=== PATIENT | female | born 2005 | race African-American/Black ===

== ENCOUNTER 2024-08-22 09:43 | Emergency (ER) | payer SELFPAY ==
--- NOTE | ~2024-08-22 | XR_ITS ---
CLINICAL HISTORY: cough, chest tightness 2 view chest x-ray Comparison: None Findings: The lungs are clear. Heart size is normal. No acute fracture. IMPRESSION: 1. No acute findings. This document has been electronically signed by: Tali Albrecht MD on 08/22/2024 13:11:50
[2024-08-22 09:47] VITALS: BP 125/83; PULSE 106; RESP 18; TEMP 37; O2SAT 97; BMI 31.2
[2024-08-22 10:46] LABS: Influenza A PCR NEGATIVE (Negative); Influenza B PCR NEGATIVE (Negative); Resp Syncy Virus RNA Qual PCR NEGATIVE (Negative); SARS COV2 PCR INHOUSE NEGATIVE (Negative)
--- NOTE | 2024-08-22 11:06 | ED_ITS ---
HPI - URI/Sore Throat General Chief Complaint: Upper Respiratory Symptoms Stated Complaint: chills, cough Time Seen by Provider: 08/22/24 10:59 Source: patient Mode of arrival: ambulatory Limitations: no limitations History of Present Illness ED Provider: adolph acevedo np HPI Narrative: Patient is a 18-year-old female who presents to the emergency department for evaluation of viral type symptoms. She reports 1 week ago she was experiencing nasal congestion intermittent headache which she thought was secondary to her allergies for which she took a Zyrtec for a couple of days and Tylenol. Symptoms began improving. Yesterday she began again with a nonproductive cough, body aches, chills and tactile fever, chest tightness during coughing, wheezing that has required use of her albuterol rescue inhaler, and nasal congestion. She reports feeling generally fatigued since yesterday as well. Admits that other class numbers at school has been ill with similar symptoms. She currently denies headache, dizziness, neck pain, neck stiffness, nausea, vomiting, abdominal pain, numbness or tingling of the extremities. Related Data Previous Rx's ?Medication ?Instructions ?Recorded azithromycin 250 mg tablet See Rx Instructions PO .COMPLEX #6 08/22/24 tabs prednisone 20 mg tablet 20 mg PO DAILY #5 tabs 08/22/24 Allergies Allergy/AdvReac Type Severity Reaction Status Date / Time Sulfa (Sulfonamide Allergy Rash Verified 08/22/24 09:49 Antibiotics) Review of Systems Review of Systems: Yes all other systems are reviewed and are negative PMFSH Past Medical History Attestation statement: The following information was validated with the patient. Source: old records reviewed Social History Social History Substance Use Type: Marijuana Advance Directives: No Advance Directives Information Provided: Yes Physical Exam Vital Signs: Vital Signs: Last Vital Signs Temp 100.2 F 08/22/24 13:01 Pulse 100 08/22/24 13:01 Resp 18 08/22/24 13:01 BP 120/72 08/22/24 13:01 Pulse Ox 96 08/22/24 13:01 O2 Del Method Room Air 08/22/24 13:01 BMI result Body Mass Index 31.2 Appearance: Alert.?Oriented to person, place and time. No acute distress.?Normal affect. Eyes: Pupils equal, round and reactive to light.? ENT: TM normal bilaterally. Pharynx normal.?? Neck: Normal inspection.? Neck supple.??No cervical adenopathy CVS: Heart sounds normal. mild tachycardia 106 beats per minute. Pulses normal.?? Respiratory: No respiratory distress.? Lung sounds clear to auscultation bilaterally?? Abdomen: Soft and non-tender. Normoactive bowel sounds. Skin: Skin warm and dry.? Normal skin color.? ? Extremities: No lower extremity edema.? Neuro: Moves all extremities spontaneously. Sensation intact bilaterally. No motor deficits. Ambulates with normal steady gait. Medications Administered Discontinued Medications Generic Name Dose Route Start Last Admin Trade Name Freq PRN Reason Stop Dose Admin Acetaminophen 975 mg 08/22/24 13:10 08/22/24 13:17 Acetaminophen 325 Mg Tablet PO 08/22/24 13:11 975 mg ONCE ONE Administration Albuterol Sulfate 2 puff 08/22/24 13:10 08/22/24 13:17 Albuterol Sulfate 90 Mcg 8 Gm Inhaler INHALE 08/22/24 13:11 2 puff ONCE ONE Administration Medical Decision Making Medical Decision Making [facility] Narrative: Patient is a 18-year-old female with past medical history of asthma, presenting for evaluation viral type symptoms as per HPI. She endorsed symptoms early in the week which she attributed to seasonal allergies that had improved but then worsened again as of yesterday. COVID- 19/influenza / RSV testing negative. No after chest pain to suggest ACS, Wells score low risk, unlikely pulmonary embolism. CXR reveals no acute consolidation or infiltrate. Well-appearing, nontoxic, afebrile, no tachypnea/hypoxia. Speaking clear full sentences, ambulatory with steady gait. Discussed conservative treatment including rest, hydration, Tylenol/ibuprofen as needed for fever and body aches, saline nasal spray, humidifier, agsr-krs-nmursaw cold medication/ antihistamine. Advised to follow-up with primary care provider as needed, discussed reasons to return back to the emergency department. All questions were answered. Patient discharged home in stable condition. Differential Diagnosis Differential Diagnoses: The differential diagnosis associated with the presentation includes ( See narrative above) Admission/Observation Consideration of admission/observation: Escalation of care including admission/observation considered ( see narrative above) Lab Data [facility] Lab Attestation statement: I reviewed the patient's lab results. ( see narrative above) Labs: Lab Results 05/18/25 Range/Units 09:59 Influenza Type A (PCR) NEGATIVE (Negative) Influenza Type B (PCR) NEGATIVE (Negative) RSV RNA Qual (PCR) NEGATIVE (Negative) SARS-CoV-2 RNA (RT-PCR) NEGATIVE (Negative) Independent Interpretation I performed an independent interpretation of an: Plain X-Ray ( see narrative above) Radiology Impression Discussion of test interpretation with radiology: I have reviewed the radiologist's reading. Prescription Management I considered prescription management with: Pain Medication ( acetaminophen/ibuprofen) Chronic Conditions Patient?s care impacted by: Other ( see narrative above) Discharge Plan Discharge Clinical Impression: Bronchitis, Asthma exacerbation Patient Disposition: Home, Self-Care Instructions: Asthma (ED), Acute Bronchitis (ED) Additional Instructions: Chest x-ray does not show evidence of pneumonia. Testing for COVID, flu, and RSV were negative. Your exam today was very reassuring. Fifteen for prednisone which is an oral steroid should be taken daily with food to prevent stomach upset in addition to a prescription for Azithromycin biotic has been sent to your pharmacy. Be sure to rest, stay well hydrated drinking plenty of fluids, eat small frequent meals. Tylenol/ibuprofen can be used as needed for fever/pain. Sbra-wrj-cndmeja cold medications may be helpful as well for symptoms. Saline nasal spray, humidifier may be helpful for nasal congestion. You may return to the emergency department with any new or worsening symptoms or concerns. Follow-up with your primary care provider as needed. Should remain out of school/ work until symptoms have resolved and have been without a fever for 24 hours without the use of Tylenol or ibuprofen. It is very important to use a back-up form of control, such as barrier condoms/abstinence, while on antibiotics and for one week after as they may be ineffective in preventing while on the antibiotics. While taking antibiotics, please include probiotics that can be found over the counter or yogurt in your diet. If symptoms of a yeast infection or diarrhea occur, please seek evaluation. Prescriptions: New azithromycin 250 mg tablet See Rx Instructions .ROUTE .COMPLEX Qty: 6 0RF Rx Instructions: For 250 mg dose pack: take 500 mg today (day 1), then 250 mg for 4 days (days 2-5) prednisone 20 mg tablet 20 mg PO DAILY Qty: 5 0RF Referrals: Nicolle Velasquez MD [Primary Care Provider] - Print Language: Khmer
--- OUTSIDE RECORDS SUMMARY | 2024-08-22 11:11 | XMS_ITS ---
Author Name [facility] Organization Unknown History of Medication Use Medication Directions Dispensed Refills Start Date End Date Stat SENNA 8.6 mg tablet TAKE 1 TABLET BY MOUTH NIGHTLY 11/06/2022 12/04/2022 active SENNA 8.6 mg tablet TAKE 1 TABLET BY MOUTH NIGHTLY 11/05/2022 11/05/2022 active omeprazole (PRILOSEC) 40 MG capsule TAKE 1 CAPSULE (40 MG) BY MOUTH DAILY 04/03/2022 07/05/2022 active polyethylene glycol (MIRALAX) 17 gram/dose powder 1 capful twice daily 12/13/2021 active FLUoxetine (PROZAC) 20 MG capsule Take by mouth 07/09/2021 active traZODone (DESYREL) 100 MG tablet Take by mouth 07/09/2021 active lurasidone (LATUDA) 20 mg Tablet 0 Refills, Maintenance, 06/30/21 21:06:00 EDT, Partial fill upon patient request if the prescription is for a schedule II opioid drug. 06/30/2021 active traZODone (DESYREL) 50 MG tablet Take by mouth 06/30/2021 active Problems Problem Status Onset Date Problem Type Date of Resolution Source Constipation, unspecified constipation type active [place] [place] Encounter Type Encounter Reason Primary Diagnosis Location Date [facility] 07/01/2022 [facility] 04/10/2022 [facility] 04/04/2022 [facility] 02/27/2022 [facility] 12/27/2021 Care Team Organization Name Specialty Phone Email Start Date End Da te [facility] STACY FULLER Primary Care 02/28/2022
--- OUTSIDE RECORDS SUMMARY | 2024-08-22 11:11 | XMS_ITS | Clinical Summary ---
Author Organization [facility] Address [address] [place] [address] Care Team Providers Care Medical Economics Consultant Name Role Phone Unavailable Primary Care Provider Unavailabl e Social History Tobacco Use Types Packs/Day Years Used Date Smoking Tobacco: Never Assessed Comments Unknown Sex and Gender Information Value Date Recorded Sex Assigned at Not on file Legal Sex Female 10:14 AM EST Gender Identity Not on file Sexual Orientation Not on file Plan of Treatment Health Maintenance Due Date Last Done Comments Gonorrhea/Chlamydia Screening 2004 Varicella Vaccines (1 of 2 - 13+ 2-dose series) 2017 HPV Vaccines (1 - 3-dose series) 12/30/2019 Meningococcal B Vaccine (1 o f 2 - Standard) 2020 Annual Well Child Visit (3-2 1 years old) 03/10/2022 Depression Screening 03/10/2022 HIV Screening 03/10/2022 Hepatitis C Screening 03/10/2022 Social Influencers of Health Screening 03/10/2022 COVID-19 Vaccine ( - 2023-2 5 season) 2023 DTaP,Tdap,and Td Vaccines (1 - Tdap) 12/30/2023 Hepatitis B Vaccines (1 of 3 - 19+ 3-dose series) 12/30/2023 Influenza Vaccine (Season Ended) 2024 HIB Vaccines Aged Out No longer eligi ble based on patient's age to complete this topic Hepatitis A Vaccines Aged Out No long er eligible based on patient's age to complete this topic IPV Vaccines Aged Out No longer eligi ble based on patient's age to complete this topic MMR Vaccines Aged Out No longer eligi ble based on patient's age to complete this topic Meningococcal ACWY Vaccine Aged Out N o longer eligible based on patient's age to complete this topic Pneumococcal Vaccine: Pediat rics (0 to 5 Years) and At-Risk Patients (6 to 64 Years) Aged Out No longer eligible b ased on patient's age to complete this topic RSV Immunization Patients Un reza 20 months Aged Out No longer eligible b ased on patient's age to complete this topic
[2024-08-22 13:01] VITALS: BP 120/72; PULSE 100; RESP 18; TEMP 37.9; O2SAT 96
[2024-08-22] MEDS: Albuterol Sulfate 90 MCG 8 GM INHALER 2 PUFF INHALE (13:17)
[2024-08-22] MEDS: Acetaminophen 325 MG TABLET 975 MG PO (13:17)
[2024-08-22 13:26] VITALS: BP 120/72; PULSE 100; RESP 18; TEMP 37.9; O2SAT 96
== END 2024-08-22 13:29 | disposition home or self-care (01) ==
PROVIDERS: Emergency Provider Emergency Medicine; PCP Pediatrics Adolescent Medicine
DX: J40 Bronchitis, not specified as acute or chronic (principal); J45.901 Unspecified asthma with (acute) exacerbation; R05.9 Cough, unspecified; R51.9 Headache, unspecified; Z03.818 Encounter for observation for suspected exposure to other biological agents ruled out
CPT/HCPCS: 0241U; 71046; 99284

== ENCOUNTER → 2024-08-22 11:07 | Outpatient (BNV) | payer MEDICAID, SELFPAY | PROVIDERS: Emergency Provider Emergency Medicine; PCP Pediatrics Adolescent Medicine; Visit Provider Radiology Diagnostic Radiology | DX: R05.9 Cough, unspecified (principal); R07.89 Other chest pain | CPT/HCPCS: 71046 ==

== ENCOUNTER 2024-10-09 09:19 | Emergency (ER) | payer MEDICAID, SELFPAY ==
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
[2024-10-09 09:29] VITALS: BP 125/79; PULSE 65; RESP 18; TEMP 36.3; O2SAT 97; BMI 33.2
[2024-10-09 10:18] VITALS: BP 109/66; PULSE 57; RESP 16; TEMP 36.6; O2SAT 100
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
--- OUTSIDE RECORDS SUMMARY | 2024-10-09 10:50 | XMS_ITS ---
Author Name [facility] Organization Unknown History of Medication [...] Constipation, unspecified constipation type active [place] [place] Encounter Type Encounter Reason Primary Diagnosis Location Date [facility] 07/01/[facility] 04/10/[facility] 04/04/[facility]22 [facility] 02/27/2022 [facility] 12/27/2021 Care Team Organization Name Specialty Phone Email Start Date End Da te [facility] STACY FULLER Primary Care 02/28/2022
[2024-10-09 12:20] VITALS: BP 109/68; PULSE 68; RESP 16; TEMP 36.1; O2SAT 98
--- NOTE | 2024-10-09 12:23 | PC.NURSE ---
Pt resting quietly in room; ice pack to R eye; pt refused IM Toradol; awaiting dispo
[2024-10-09 12:49] VITALS: BP 111/62; PULSE 65; RESP 16; TEMP 36.1; O2SAT 100
== END 2024-10-09 12:51 | disposition home or self-care (01) ==
PROVIDERS: Emergency Provider Emergency Medicine; PCP Pediatrics Adolescent Medicine
DX: S09.90XA Unspecified injury of head, initial encounter (principal); H05.229 Edema of unspecified orbit; Y04.2XXA Assault by strike against or bumped into by another person, initial encounter; Y93.9 Activity, unspecified; Y92.9 Unspecified place or not applicable; Y99.9 Unspecified external cause status
CPT/HCPCS: 70450; 70486; 99284

== ENCOUNTER → 2024-10-09 10:35 | Outpatient (BNV) | payer MEDICAID, SELFPAY | PROVIDERS: Emergency Provider Emergency Medicine; PCP Pediatrics Adolescent Medicine; Visit Provider Radiology Diagnostic Radiology | DX: S05.11XA Contusion of eyeball and orbital tissues, right eye, initial encounter (principal); R51.9 Headache, unspecified | CPT/HCPCS: 70450; 70486 ==

== ENCOUNTER 2025-03-04 10:51 | Emergency (ER) | payer OTHER, SELFPAY ==
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
[2025-03-04 10:56] VITALS: BP 115/72; PULSE 86; RESP 16; TEMP 37; O2SAT 98; BMI 27.4
--- OUTSIDE RECORDS SUMMARY | 2025-03-04 12:31 | XMS_ITS | Clinical Summary ---
Author Organization [facility] Address [address] [place] [address] Phone Care Team Providers Care Sweatband Shaper Name Role Phone Physician, No Pcp Primary Care Provider Unavaila ble Allergies No known active allergies Medical History Medical History Date Comments Asthma Social History Tobacco Use Types Packs/Day Years Used Date Smoking Tobacco: Never Tobacco Cessation:Counseling Given: Not Answered Comments Unknown Sex and Gender Information Value Date Recorded Sex Assigned at Not on file Legal Sex Female 10:14 AM EST Gender Identity Not on file Sexual Orientation Not on file Obstetrics History Last Filed Vital Signs Vital Sign Reading [...] Mass Index 31 10/09/2024 12:24 AM EDT Plan of Treatment Health Maintenance Due Date Last Done Comments Gonorrhea/Chlamydia Screening 2004 DTaP,Tdap,and Td Vaccines (6 - Tdap) 12/30/2015 02/16/2009, 06/30/2006, 11/05/2005, Additional history exists Depression Screening 04/07/2024 Annual Well Child Visit (3-21 years old) 10/09/2024 HIV Screening 10/09/2024 Hepatitis C Screening 10/09/2024 Social Influencers of Health Screening 10/09/2024 COVID-19 Vaccine ( season) 2024 10/24/2020, 09/19/2020 Influenza Vaccine (#1) 2024 , 02/02/2020, 01/26/2018, Additional history exists RSV Immunization Adult Patients (1 - 1-dose 75+ series) 12/30/2079 Hepatitis B Vaccines Completed 11/05/2005, 07/24/2005, 06/13/2005, Additional history exists HIB Vaccines Completed 06/30/2006, 04/2005, 07/24/2005, Additional history exists IPV Vaccines Completed 02/16/2009, 04/2005, 07/24/2005, Additional history exists MMR Vaccines Completed 03/07/2010, 02/26/2006 Varicella Vaccines Completed 03/07/2010, 02/26/2006 Hepatitis A Vaccines Completed 03/18/2016, 01/10/20 15 HPV Vaccines Completed 04/28/2017, 03/18/2016 Meningococcal ACWY Vaccine Completed 05/03/2021, Meningococcal B Vaccine Completed 04/08/2024, 02/24 Pneumococcal Vaccine: Pediatrics (0 to 5 Years) and At-Risk Patients (6 to 49 Years) Aged Out No longer eligible based on patient's age to complete this topic RSV Immunization Patients Under 20 months Aged Out No longer eligible based on patient's age to complete this topic Insurance MEDICAID - [place] Care Teams Sweatband Shaper Relationship Specialty Start Date End Date Physician, No Pcp PCP - General 10/09/24
--- OUTSIDE RECORDS SUMMARY | 2025-03-04 12:31 | XMS_ITS | Encounter Summary ---
Author Organization [facility] Address [address] [place] [address] Care Team Providers Care Forensic Science Examiner Name Role Phone Ceferino Clark MD Primary Care Provider [phone] Reason for Visit * Reason Comments Medication Refill Encounter Details Date Type Department Care Team (Late st Contact Info) Description 05/30/2022 Refill [facility] G[facility], [place] [address] [place] [address] Sabrina Carlton MD [address] [place] [phone] Nausea and vomiting, unspecified vomiting type Social History Tobacco Use Types Packs/Day Years Used Date Smoking Tobacco: Never Smokeless Tobacco: Never Comments No Sex and Gender Information Value Date Recorded Sex Assigned at Not on file Legal Sex Female 2:02 PM EDT Gender Identity Not on file Sexual Orientation Not on file documented as of this encounter Miscellaneous Notes * Telephone Encounter - Janene Cassidy RN - 06/04/2022 10:17 AM EST Last appt: 12/13/21 Next appt: 06/05/22 Weight: 84.1 kg Allergies: reviewed Current dosage: 1. Omeprazole 40 mg po once daily in morning documented in this encounter Plan of Treatment Not on file documented as of this encounter Visit Diagnoses Diagnosis Nausea and vomiting, unspecified vomiting type documented in this encounter Care Teams Forensic Science Examiner Relationship Specialty Start Date End Date Ceferino Clark MD [address] [place] [phone] PCP - General General Pediatrics 11/19/21 documented as of this encounter
--- OUTSIDE RECORDS SUMMARY | 2025-03-04 12:31 | XMS_ITS | Encounter Summary ---
Author Organization [facility] Address [address] [place] [address] Care Team Providers Care Blacksmith Hammer Operator Name Role Phone Ceferino Clark MD Primary Care Provider [phone] Reason for Visit * Reason Comments Medication Refill Encounter Details Date Type Department Care Team (Late st Contact Info) Description 06/29/2022 Refill [facility] G[facility]enterology, [place] [address] [place] [address] Sabrina Carlton MD [address] [place] [phone] Nausea and vomiting, unspecified vomiting type Social [...] Telephone Encounter - Janene Cassidy RN - 07/01/2022 1:50 PM EDT Last appt: 12/13/21 Next appt: no appt booked at this time. Weight: 84.1 kg Allergies: reviewed Current dosage: 1. Omeprazole 40 mg po once daily in morning documented in this encounter Plan of Treatment Not on file documented as of this encounter Visit Diagnoses Diagnosis Nausea and vomiting, unspecified vomiting type documented in this encounter Care Teams Blacksmith Hammer Operator Relationship Specialty Start Date End Date Ceferino Clark MD [address] [place] [phone] PCP - General General Pediatrics 11/19/21 documented as of this encounter
--- OUTSIDE RECORDS SUMMARY | 2025-03-04 12:31 | XMS_ITS | Encounter Summary ---
Author Organization [facility] Address [address] [place] [address] Care Team Providers Care Sexual Abuse Counsellor Name Role Phone Ceferino Clark MD Primary Care Provider [phone] Reason for Visit * Reason Comments Medication Refill Encounter Details Date Type Department Care Team (Late st Contact Info) Description 05/01/2022 Refill [facility] G[facility]enterology, [place] [address] [place] [address] Sabrina Carlton MD [address] [place] [address] Nausea and vomiting, unspecified vomiting type Social History Tobacco Use Types Packs/Day Years Used Date Smoking Tobacco: Never Smokeless Tobacco: Never Comments No Sex and Gender Information Value Date Recorded Sex Assigned at Not on file Legal Sex Female 2:02 PM EDT Gender Identity Not on file Sexual Orientation Not on file documented as of this encounter Miscellaneous Notes * Telephone Encounter - Angeles Howard RN - 05/02/2022 4:44 PM EST NEW 12-13-21 Dose correct Next appt 06-05-22 documented in this encounter Plan of Treatment Not on file documented as of this encounter Visit Diagnoses Diagnosis Nausea and vomiting, unspecified vomiting type documented in this encounter Care Teams Sexual Abuse Counsellor Relationship Specialty Start Date End Date Ceferino Clark MD [address] [place] [phone] PCP - General General Pediatrics 11/19/21 documented as of this encounter
--- OUTSIDE RECORDS SUMMARY | 2025-03-04 12:31 | XMS_ITS | Clinical Summary ---
Author Organization [facility] Address [address] [facility] [address] [place] [id number] Phone Care Team Providers Care Swine Extension Field Specialist Name Role Phone Nicolle Velasquez MD Primary Care Provider + Nicolle Velasquez MD Unavailable Allergies No known active allergies Medications naproxen (NAPROSYN) 500 MG tabletIndication s:Viral pharyngitis Take 1 tablet (500 mg total) by mouth 2 (two) times a day with meals for 10 days. 20 tablet 12/20/2022 Active Active Problems Problem Noted Date Diagnosed Date Suicidal ideation 01/13/2023 Social History Tobacco Use Types Packs/Day Years Used Date Smoking Tobacco: Never Assessed Education Answer Date Recorded Are you interested in more education? Not on dena e 01/13/2023 Are you concerned about learning? Not on file 01/13/2023 No 01/13/2023 No 01/13/2023 Digital Access Answer Date Recorded No 01/13/2023 No 01/13/2023 Reliable internet access at home? Not on file 01/13/2023 Device with a working camera? Not on file Comments Unknown Sex and Gender Information Value Date Recorded Sex Assigned at Not on file Legal Sex Female 11:52 PM EDT Gender Identity Not on file Sexual Orientation Not on file Last Filed Vital Signs Vital Sign Reading Time Taken Comments Blood Pressure 109/69 01/16/2023 6:45 PM EDT Pulse 74 01/16/2023 6:45 PM EDT Temperature 36.2 C (97.2 F) 01/16/2023 6:45 PM EDT Respiratory Rate 18 01/16/2023 6:45 PM EDT Oxygen Saturation 100% 01/16/2023 6:45 PM EDT Inhaled Oxygen Concentration - - Weight 79.4 kg (175 lb) 12/20/2022 6:14 PM EDT Height 158.8 cm (5' 2.5 ) 12/20/2022 6:14 PM EDT Body Mass Index 31.5 12/20/2022 6:14 PM EDT Plan of Treatment Health Maintenance Due Date Last Done Comments MMR VACCINES (1 of 1 - Stand humza series) 2005 DEVELOPMENTAL/BEHAVIORAL SCR EENING (PHQ, PSC, or SWYC) 12/30/2007 COMBINED DTaP,Tdap,Td (1 - Tdap) 12/30/2011 DEPRESSION SCREENING 2016 SMOKING Hx and SMOKELESS TOB ACCO SCREENING 2017 VARICELLA VACCINES (1 of 2 - 13+ 2-dose series) 2017 HPV VACCINES (1 - 3-dose series) 12/30/2019 MENINGOCOCCAL VACCINES (B) ( 1 of 2 - Standard) 2020 ADOLESCENT UNIVERSAL LIPID SCREENING 2021 HEPATITIS C SCREENING 2022 HIV ONE-TIME SCREENING (18-6 5 YEARS) 2022 CHLAMYDIA SCREENING 12/23/2023 12/22/2022 INFLUENZA VACCINE (#1) 2024 COVID-19 VACCINE ( - 2024-2 6 season) 2024 HEPATITIS A VACCINES Aged Out No long er eligible based on patient's age to complete this topic HIB VACCINES Aged Out No longer eligi ble based on patient's age to complete this topic MENINGOCOCCAL VACCINES (ACWY) Aged Out No longer eligible based on patient's age to complete this topic PNEUMOCOCCAL VACCINES (0-49 years) Aged Out No longer eligible based on patient's age to complete this topic Medical Devices Not on file Procedures Procedure Name Priority Date/Time Associated Diagnosis Comments HC IADNA RESPIRATRY PROBE & REV TRNSCR 03-31 TARGET Routine 12/22/2022 5:34 AM EDT from Last 3 Months or Most Recently Relevant to Health Maintenance Results * COVID-19 RT-PCR and Respiratory Pathogen Panel (12/22/2022 5:34 AM EDT) SPECIMEN SOURCE/DESCRIPTIO N NASOPHARYNGEAL SWAB [facility] SARS-CoV 2 (COVID-19) PCR Not Detected Not Detected [facility] Comment: Negative results do not preclude SARS-CoV-2 infection and should not be used as the sole basis for patient management decisions. Negative results must be combined with clinical observations, patient history, and epidemiological information. Optimum specimen types and timing for peak viral levels during infection by SARS-CoV-2 have not been determined. Collection of multiple specimens from the same patient may be necessary to detect the virus. The Biofire assay is FDA approved for use on nasopharyngeal swabs only. Adenovirus Not Detected Not Detected [facility] Coronavirus, not SARS-CoV-2 Not Detected Not Detected [facility] Comment:This component of th e panel targets Coronavirus 229E, HKU1, NL63, and OC43 only. Human Metapneumovirus Not Detected Not Detected [facility] Influenza A Not Detected Not Detected [facility] Influenza B Not Detected Not Detected [facility] Parainfluenza 1-4 Not Detected Not Detected [facility] Respiratory Syncytial Virus Not Detected Not Detected [facility] Human Rhinovirus/Entero virus Not Detected Not Detected [facility] Bordetella Parapertussis Not Detected Not Detected [facility] Bordetella Pertussis Presumptive: Not Detected Presumptiv e: Not Detected [facility] Chlamydia Pneumoniae Presumptive: Not Detected Presumptiv e: Not Detected [facility] Mycoplasma Pneumoniae Presumptive: Not Detected Presumptiv e: Not Detected [facility] Comment: Performance of this assay has not been established for specimens collected from individuals without signs or symptoms of respiratory infections. This test has [place] authorization from the FDA for use by authorized laboratories. 12/22/2022 5:34 AM EDT 12/22/2022 6:09 AM EDT us Dave Burton MD BODY FLUIDS AND STOOLS ORDERABLE S Final Result [address] [id number] from Last 3 Months or Most Recently Relevant to Health Maintenance Insurance [facility] Care Teams Swine Extension Field Specialist Relationship Specialty Start Date End Date Nicolle Velaqsuez MD [address] [place] [phone] PCP - General Pediatrics 01/13/23 Nicolle Velasquez MD [address] [place] [phone] Pediatrics 01/13/23 Additional Source Comments The information contained in this document represents components of the legal health record. It is not the complete legal health record.[facility]
--- OUTSIDE RECORDS SUMMARY | 2025-03-04 12:32 | XMS_ITS | Clinical Summary ---
Author Organization [facility] Address [address] [place] [address] Care Team Providers Care Lap Maker Name Role Phone Ceferino Clark MD Primary Care Provider [phone] Source Comments Please note that some or all of the patient's information could have additional privacy protections. State laws allow health care providers to render certain types of treatment to minors without parental consent. Please do not assume that this information can be shared solely by obtaining just the consent of the patient's parent/guardian. Please determine if all or part of the patient's care was rendered without parent/guardian involvement. And, if so, obtain the minor's consent prior to disclosure.[facility] Allerg[facility] No known active allergies Medications levonorgestrel-e thinyl estradiol (AVIANEBLAYNE,Ana ESSALIYA) 0.1-20 mg-mcg per tablet Take by mouth 2 Active FLUoxetine (PROZAC) 20 MG capsule Take by mouth 2 Active lurasidone (LATUDA) 20 mg Tablet Take 60 mg by mouth once Or as needed 2 Active lurasidone (LATUDA) 20 mg Tablet 0 Refills, Maintenance, 06/30/21 21:06:00 EDT, Partial fill upon patient request if the prescription is for a schedule II opioid drug. 2 Active traZODone (DESYREL) 100 MG tablet Take by mouth 2 Active traZODone (DESYREL) 50 MG tablet Take by mouth 2 Active lisdexamfetamine (VYVANSE) 20 MG capsule Take 20 mg by mouth 1 Active polyethylene glycol (MIRALAX) 17 gram/dose powderIndication s:Constipation, unspecified constipation type 1 capful twice daily 595 g 3 2 Active SENNA 8.6 mg tabletIndication s:Constipation, unspecified constipation type TAKE 1 TABLET BY MOUTH NIGHTLY 30 tablet 5 3 Active Active Problems No known active problems Family History Medical History Relation Name Comments Diabetes type II Father Diverticulitis Paternal Grandmother Relation Name Status Comments Father Paternal Grandmother Social History Tobacco Use Types Packs/Day Years Used Date Smoking Tobacco: Never Smokeless Tobacco: Never Other Needs Answer Date Recorded Anything else about your child you'd like help w ith? Not on file 12/20/2022 Share good news about positive changes: Not on f ile 12/20/2022 Comments No Sex and Gender Information Value Date Recorded Sex Assigned at Not on file Legal Sex Female 2:02 PM EDT Gender Identity Not on file Sexual Orientation Not on file Last Filed Vital Signs Vital Sign Reading Time Taken Comments Blood Pressure - - Pulse - - Temperature - - Respiratory Rate - - Oxygen Saturation - - Inhaled Oxygen Concentration - - Weight 84.1 kg (185 lb 6.5 oz) 12/13/2021 11:38 AM EDT Height 160.7 cm (5' 3.27 ) 12/13/2021 11:38 AM E DT Body Mass Index 32.57 12/13/2021 11:38 AM EDT Plan of Treatment Health Maintenance Due Date Last Done Comments DTaP/TDAP/TD VACCINES (1 - Tdap) 12/30/2011 ADOLESCENT HIV SCREENING 2017 COVID-19 Vaccine (2023-2 5 season) 2024 INFLUENZA (#1) 2024 NIRSEVIMAB VACCINES UNDER 8 MONTHS Aged Out No longer eligible based on patient's age to complete this topic [place] [address] MEDICAID Care Teams Lap Maker Relationship Specialty Start Date End Date Ceferino Clark MD [address] [facility] [place] [phone] PCP - General General Pediatrics 11/19/21
--- OUTSIDE RECORDS SUMMARY | 2025-03-04 12:32 | XMS_ITS | Encounter Summary ---
Author Organization [facility] Address [address] [place] [address] Care Team Providers Care Dye Blender Name Role Phone Ceferino Clark MD Primary Care Provider [phone] Reason for Visit * Reason Comments Medication Refill Encounter Details Date Type Department Care Team (Late st Contact Info) Description 11/04/2022 Refill [facility] G[facility]ology, [place] [address] [place] [address] Sabrina Carlton MD [address] [place] [id number] Constipation, unspecified constipation type Social History Tobacco Use Types Packs/Day Years Used Date Smoking Tobacco: Never Smokeless Tobacco: Never Comments No Sex and Gender Information Value Date Recorded Sex Assigned at Not on file Legal Sex Female 2:02 PM EDT Gender Identity Not on file Sexual Orientation Not on file documented as of this encounter Miscellaneous Notes * Telephone Encounter - Winnie Randall RN - 11/04/2022 3:30 PM EDT Last Visit: 12/13/21 (NEW) FUV: nothing pending & no show 06/05/22; MD had wanted FUV in 6-8 weeks Allergies: reviewed Weight: 84.1 kg Correct Dose: per AYDEE note: Senna 1 tablet once daily at bedtime documented in this encounter Plan of Treatment Not on file documented as of this encounter Visit Diagnoses Diagnosis Constipation, unspecified constipation type documented in this encounter Care Teams Dye Blender Relationship Specialty Start Date End Date Ceferino Clark MD [address] [place] [phone] PCP - General General Pediatrics 11/19/21 documented as of this encounter
[2025-03-04] MEDS: Lidocaine 4 % Patch ADH..PATCH 1 PATCH TRANSDERMA (12:49)
[2025-03-04 13:03] LABS: UPreg QC Valid YES
[2025-03-04 14:33] VITALS: BP 115/72; PULSE 86; RESP 16; TEMP 37; O2SAT 98
== END 2025-03-04 14:33 | disposition home or self-care (01) ==
PROVIDERS: Physician Assistant Medical; Emergency Provider Emergency Medicine; PCP Pediatrics Adolescent Medicine
DX: S89.92XA Unspecified injury of left lower leg, initial encounter (principal); R51.9 Headache, unspecified; M54.2 Cervicalgia; M79.605 Pain in left leg; M79.672 Pain in left foot; M25.511 Pain in right shoulder; V43.52XA Car driver injured in collision with other type car in traffic accident, initial encounter; Y93.9 Activity, unspecified; Y92.410 Unspecified street and highway as the place of occurrence of the external cause; Y99.8 Other external cause status
CPT/HCPCS: 70450; 72125; 73030; 73060; 73552; 73590; 73630; 81025; 96372; 99284

== ENCOUNTER → 2025-03-04 10:58 | Outpatient (BNV) | payer MEDICAID, SELFPAY | PROVIDERS: Visit Provider Radiology Diagnostic Radiology | DX: M54.2 Cervicalgia (principal); R51.9 Headache, unspecified; M25.511 Pain in right shoulder; S72.92XA Unspecified fracture of left femur, initial encounter for closed fracture; Z04.3 Encounter for examination and observation following other accident; S49.92XA Unspecified injury of left shoulder and upper arm, initial encounter; S82.202A Unspecified fracture of shaft of left tibia, initial encounter for closed fracture; V89.2XXA Person injured in unspecified motor-vehicle accident, traffic, initial encounter | CPT/HCPCS: 70450; 72125; 73030; 73060; 73552; 73590; 73630 ==